=== PATIENT | male | born 1985 | race Two or more races ===

== ENCOUNTER 2017-11-24 23:59 | Emergency (ER) | payer OTHER ==
[~2017-11-24] VITALS: Ht 172.7 cm; Wt 70.0 kg
[~2017-11-24 23:59] MED LIST: DENIES; DOCU-131 PO; HYDR-3307 PO; METH500T97 PO; METH750T87 PO; MULT-224 PO; OXYC-432 PO
[2017-11-25 04:53] VITALS: BP 107/73
== END 2017-11-25 09:53 | disposition home or self-care (01) ==
LOC: ED 11-25 01:02
DX: R41.82 Altered mental status, unspecified (principal); F10.129 Alcohol abuse with intoxication, unspecified
CPT/HCPCS: 99283